=== PATIENT | male | born 1955 | race Caucasian/White ===

== ENCOUNTER 2016-12-09 09:00 | Inpatient (IN) | payer OTHER ==
[~2016-12-09] VITALS: Ht 182.9 cm; Wt 93.3 kg
--- NOTE | ~2016-12-09 | DS ---
PATIENT'S NAME: RAFAL STOUT [facility] AGE: 61 Y [address] ROOM: [place] [address] LOCATION: [facility] ADMIT DATE: 12/22/2016 Discharge Summary DISCHARGE DATE: 12/24/2016 FAMILY PHYSICIAN: Fabian Duval MD ATTENDING PHYSICIAN: Jana Lai PRIMARY DIAGNOSIS: Degenerative joint disease of the left knee. SECONDARY DIAGNOSES: 1. Hypertension. 2. Atrial fibrillation. 3. Hyperlipidemia. PROCEDURE PERFORMED: Left total knee arthroplasty with computer navigation. HISTORY: The patient is a 61-year-old male, who presents with advanced left knee degenerative joint disease and associated severely compromised activities of daily living. The patient has decided to proceed with total knee arthroplasty after having been thoroughly counseled regarding the risks, benefits, limitations and alternatives. Please refer to the outpatient clinic notes and admission history and physical for this patient. HOSPITAL COURSE: The patient underwent a left total knee arthroplasty on 12/22/2016 without complications. Spinal anesthesia plus adductor canal block plus periarticular local anesthesia was utilized. The patient received 24 hours of perioperative prophylactic antibiotics and remained hemodynamically stable, neurovascularly intact throughout the entire hospital course. The postoperative prophylactic deep venous thrombosis prophylaxis consisted of Xarelto 10 mg, early mobilization and pneumatic compression devices. Daily physical therapy for gait training, transfer training range of motion and quadriceps isometric exercises were received. The patient progressed well in physical therapy. On the date of discharge, 12/24/2016, the incision at the knee was healing well and showed no signs of infection. DISPOSITION: Home. DISCHARGE ACTIVITY: The patient is to bear weight as tolerated with range of motion and quadriceps isometric exercises as instructed. The operative extremity is to be elevated at least 90% of the day. There is to be sterile 4x4 gauze dressings to the incision daily. Dr. Lai is to be notified immediately if there is any increased pain, fevers, chills erythema or drainage. DISCHARGE MEDICATIONS: 1. Includes Xarelto 10 mg take one tab p.o. daily for DVT prevention. PATIENT'S NAME: RAFAL STOUT [facility] AGE: 61 Y [address] ROOM: [address] [address] LOCATION: [facility] ADMIT DATE: 12/22/2016 Discharge Summary DISCHARGE DATE: 12/24/2016 FAMILY PHYSICIAN: Fabian Duval MD ATTENDING PHYSICIAN: Jana Lai 2. Dilaudid 2 mg, take 1 to 2 tablets p.o. every 3 hours as needed for pain. FOLLOWUP: Followup appointment is to be with Dr. Lai on 12/29/2016 for initial postoperative evaluation with x-rays and for staple removal. FRED BENTLEY FOR JANA LAI MD TLB/modl /[id number] d: 01/13/17 0300 t: 01/13/17 1540, DISCHARGE SUMMARY
--- NOTE | ~2016-12-09 | OR ---
PATIENT'S NAME: SERAFIN STOUT [facility] AGE: 61 Y [address] ROOM: [place] [address] LOCATION: [facility] ADMIT DATE: 12/22/2016 OR/Procedure Report DISCHARGE DATE: FAMILY PHYSICIAN: Fabian Duval MD ATTENDING PHYSICIAN: JANA LAI SURGEON: Jana Lai MD CHAIR SPRING ASSEMBLER: 1. FRED Gates. 2. Orlin Ni CST/MOLECULAR BIOLOGY DIRECTOR. DATE OF PROCEDURE: 12/22/2016 PRE-OP DIAGNOSIS: Degenerative joint disease, left knee. POST-OP DIAGNOSIS: Degenerative joint disease, left knee. OPERATION: Left total knee arthroplasty with computer navigation. ANESTHESIA: Spinal anesthesia plus adductor canal block plus periarticular local anesthesia (ropivacaine with epinephrine and Toradol). ESTIMATED BLOOD LOSS: Less than 10 mL. DRAIN: None. SPECIMEN: None. COMPLICATIONS: None. IMPLANT SYSTEM: Narg[employer] Triathlon. 1. Size 6 left posterior-stabilized femoral component. 2. Size 6 [place] modular tibial baseplate. 3. An 11 mm posterior-stabilized size 6 X3 tibial polyethylene insert. 4. A 32 mm oval X3 patellar component (triple pegged). INDICATIONS FOR SURGERY: Serafin Stout is a 61-year-old male who presents with advanced left knee degenerative joint disease and associated severely compromised activities of daily living. The patient has decided to proceed with knee replacement after having been thoroughly counseled regarding the associated risks, benefits, and limitations. We have specifically reviewed the risks and implications of infection, deep venous thrombosis, pulmonary embolism, mortality, neurovascular complications, blood transfusion (and associated potential for disease transmission or transfusion reaction), stiffness, instability, mechanical deterioration of the components (due to wear and or loosening), and the potential need for revision. We have also emphasized the importance of active involvement and compliance with post- operative physical therapy as a means of optimizing range of motion and PATIENT'S NAME: SERAFIN STOUT [facility] AGE: 61 Y [address] ROOM: [place] [address] LOCATION: [facility] ADMIT DATE: 12/22/2016 OR/Procedure Report DISCHARGE DATE: FAMILY PHYSICIAN: Fabian Duval MD ATTENDING PHYSICIAN: JANA LAI functional recovery. Informed consent has been granted. DESCRIPTION OF PROCEDURE: The patient was positioned supine after administration of anesthesia and prophylactic antibiotics. A well-padded pneumatic tourniquet was placed around the left proximal thigh, and the left lower extremity was prepped and draped with vigilant sterile technique. The patient's name as well as the intended operative side and procedure were confirmed with a verbal time-out involving myself, the circulating nurse, the scrub nurse, and the anesthesiologist. Examination under anesthesia demonstrated a well-healed, long, curvilinear medial parapatellar arthrotomy scar. This was incorporated into our longitudinal midline incision. A full-thickness flap was raised from the incision to the medial retinaculum. No flap was raised in a medial direction. There were no active skin lesions or masses. There was a large effusion. There was no erythema. There was no abnormal warmth. Range of motion under anesthesia was from full extension to 130 degrees of flexion. There was no ligamentous insufficiency. The left lower extremity was elevated and exsanguinated with an Esmarch wrap, and the pneumatic tourniquet was inflated to 300mmHg. The knee was approached through a longitudinal midline incision. A medial parapatellar arthrotomy was performed and the patella was everted. Examination of the joint space demonstrated a large amount of benign-appearing orange tinted translucent synovial fluid. The cruciate ligaments were intact. There was extensive moderately proliferative synovitis. An extensive synovectomy was performed. Cruciate ligaments were intact. There was a moderate-sized intercondylar notch osteophyte. There were several nonresorbable sutures in the medial retinaculum. These were removed. There was full-thickness loss of articular cartilage involving 90% of the medial femoral condyle and 90% of the medial tibial plateau. There was a large osteophyte at the medial femoral condyle. There was a moderate-sized osteophyte at the medial margin of the patella. There was a large osteophyte at the anterior aspect of the lateral tibial plateau. There was a 1 cm diameter region of full-thickness articular cartilage loss with an associated full-thickness delaminating articular cartilage flap at the medial aspect of the lateral tibial plateau. There was a 1 x 2 cm region of full-thickness articular cartilage loss at the medial aspect of the medial facet of the patella. There was high-grade partial thickness articular cartilage loss throughout the remainder of the medial facet of the patella. There was a small osteophyte at the lateral margin of the femoral trochlea. There were grade 2 degenerative changes at the femoral trochlea. There was mild inner perimeter degenerative tearing and extensive chondrocalcinosis at the lateral meniscus. There was complex degenerative tearing of the small peripheral macerated remnant of the medial meniscus. PATIENT'S NAME: SERAFIN STOUT [facility] AGE: 61 Y [address] ROOM: [address] [address] LOCATION: [facility] ADMIT DATE: 12/22/2016 OR/Procedure Report DISCHARGE DATE: FAMILY PHYSICIAN: Fabian Duval MD ATTENDING PHYSICIAN: JANA LAI Remnants of the menisci and cruciate ligaments were excised. The [employer] computer navigation femoral tracker was pinned in place at the distal aspect of the femoral trochlea. Absence of motion between the femur and the tracking device was confirmed manually and visually. Femoral osseous landmarks were obtained in order to calibrate the computer navigation system. Landmarks included the center of rotation of the ipsilateral hip, the center-point of the distal femur, the femoral AP axis, 57 points on the medial femoral condyle articular surface, and 57 points on the lateral femoral condyle articular surface. The [employer] computer navigation system was subsequently utilized to position the distal femoral resection block such that the distal femoral resection was performed perfectly perpendicular to the femoral mechanical axis. The distal femoral resection was performed with a [employer] oscillating saw. The [employer] computer navigation tibial tracker was pinned in place at the anterior aspect of the tibial plateau. Absence of motion between the tibia and the tracking device was confirmed manually and visually. Tibial osseous landmarks were obtained in order to calibrate the computer navigation system. Landmarks included the center-point of the tibial plateau, the AP tibial axis, 57 points on the medial tibial plateau articular surface, 57 points on the lateral tibial plateau articular surface, the medial malleolus, and the lateral malleolus. The [employer] computer navigation system was subsequently utilized to position the proximal tibial resection block such that the proximal tibial resection was performed perfectly perpendicular to the tibial mechanical axis. The proximal tibial resection was performed with a [employer] oscillating saw. Perpendicularity of the tibial resection with respect to the tibial shaft axis was reconfirmed by inserting a spacer- block attached to an extramedullary guide santi. External rotation of the anterior and posterior femoral resections was set parallel to the epicondylar axis and carefully adjusted in order to create a rectangular flexion gap. The box resection was performed with a reciprocating saw. Anterior and posterior chamfer resections were performed with the oscillating saw. Posterior condyle osteophytes were excised with an osteotome. All other osteophytes were excised with a rongeur. Resection of all remnants of the menisci was reconfirmed. Flexion and extension gaps were confirmed to be symmetric and well balanced with a spacer-block technique. The patella resection was performed with an oscillating saw such that the composite thickness of the reconstructed patella was equivalent to the thickness of the samish patella. Patella tracking was confirmed to be optimal. Patella tracking was optimal, and there was no need for a lateral retinacular release. PATIENT'S NAME: SERAFIN STOUT [facility] AGE: 61 Y [address] ROOM: [place] [address] LOCATION: [facility] ADMIT DATE: 12/22/2016 OR/Procedure Report DISCHARGE DATE: FAMILY PHYSICIAN: Fabian Duval MD ATTENDING PHYSICIAN: JANA LAI All trial components were removed and all prepared osseous surfaces were thoroughly irrigated with pulsatile saline lavage and dried prior to cementing all three components in a single stage using Nargis Simplex cement containing pre-mixed tobramycin. All extruded excess cement was removed. The entire joint space was thoroughly inspected and thoroughly irrigated with bacteriostatic pulsatile saline lavage to assure that there was no residual debris of any sort. Final range of motion was from a full extension (with no passive hyperextension) to 130 degrees of flexion. Patella tracking was reconfirmed to be optimal. There was excellent anteroposterior stability at 90 degrees of flexion. There was less than 1 mm of medial lift-off to valgus stress in full extension. There was less than 1 mm of lateral lift-off to varus stress in full extension. The arthrotomy was closed with multiple simple and tipxzv-[id number] interrupted #1 Vicryl. Subcutaneous tissues were thoroughly re-irrigated with bacteriostatic pulsatile saline lavage. Subcutaneous tissues were re- approximated with simple buried interrupted #0 Vicryl sutures. The skin was closed with simple buried interrupted 2-0 Vicryl sutures followed by surgical richard. The dressing consisted of Xeroform gauze, 4x4 gauze, ABD pads and two 6-inch Sb Wraps. There were no intra-operative complications. It should be noted that the physician's railway yard assistant played an active, integral role throughout this entire operation. By providing expert retraction, they greatly facilitated and expedited safe and effective exposure of the distal femur, proximal tibia and patella for preparation and implantation of the components. They were also actively involved in the patient's positioning, prepping and draping, as well as wound closure. MD MALICK CARTER/manju /[id number] d: 12/22/165 t: 12/23/16 1033, OPERATIVE SUMMARY
[2016-12-10] MEDS ORDERED: PRINIVIL OR ZES10 MG PO (14:33)
[2016-12-10] MEDS ORDERED: LIPITOR20 MG PO (14:34)
[2016-12-10] MEDS ORDERED: ASPIRIN EC81 MG PO (14:34)
[2016-12-10] MEDS ORDERED: COREG6.25 MG PO (14:34)
--- NOTE | 2016-12-22 16:29 | NUR ---
Introduced self/role to patient and family. Patient attended the preop joint class. Reports he lives in [place] with Martha. Has home with walk in shower. Does not have walker. Provided with listing of area DME options. Will follow up for recommended equipment needs. Reviewed and encouraged use of IS. Encouraged dorsal/plantar flexing when spinal worn off. Will follow and assist with identified needs.
--- NOTE | 2016-12-22 17:42 | NUR ---
Significant Event: Pt arrived from PACU 1545, spinal almost off, tingling to toes yet, no void, VSS-last half hour at 1830, adequate oral intake, Pain well controlled with Dilaudid, Scheduled Tylenol Follow up: Pain control, spinal to wear off
--- NOTE | 2016-12-23 04:12 | NUR ---
Patient alert and oriented x3, very pleasant and cooperative, csm with in normal limits, dressing clean dry and intact, ice in place to knee, transfers well one assist with walker and gaitbelt, ambulated in room, does not like to take pain pills but he did take one around 2300, has rested well VSS
--- NOTE | 2016-12-23 18:06 | NUR ---
Significant Event: Patient alert and oriented x3, continent of bowel and bladder, pain rated at 2/10. Pain managed with dilaudid 2mg @ 1340 and tylenol 1000mg @ 1659. Patient does not wish to use many pain meds or unneccessary meds. Patient denied stool softeners this morning. 1PA with gaitbelt and walker. CSMs appropriate. Follow up: Monitor for pain.
--- NOTE | 2016-12-23 19:23 | NUR ---
PATIENT DOING WELL. WILL DISMISS TOMORROW. DILAUDID ONE TAB AT 1330. TYLENOL AT 1700. CSM ADEQUATE.
--- NOTE | 2016-12-24 03:56 | NUR ---
Significant Event: A/O X 3. SAT UP IN RECLINER CHAIR. AMBULATED TO BR ONE ASSIST, GAITBELT AND WALKER TO BR. GOOD TOLERANCE. VOIDS WITHOUT PROBLEMS. TAKES FLUIDS, NO NAUSEA. IV SALINE LOCK INTACT. SHEN HOSE OFF AT HS. DRSGS DRY-INTACT LEFT KNEE. DENIES NUMBNESS OR TINGLING. ICE BAG TO LEFT KNEE. ON ROUTINE SCHEDULED TYLENOL X ST 1000MG 2300/0500. PATIENT REFUSED COLACE AND MIRALAX AT HS. POSSIBLE TO GO HOME TODAY. INCENTIVE SPIROMETER USAGE [phone]. BILATERAL FOOT PUMPS TO FEET. Follow up:
--- NOTE | 2016-12-24 10:00 | NUR ---
Followed up with patient re need for walker. Reports she was able to get one from [facility]. Denies other needs or concerns for dismissal.
[2016-12-24] MEDS ORDERED: TYLENOL EXTRA500 MG PO (12:03)
[2016-12-24] MEDS ORDERED: COLACE100 MG PO (12:04)
[2016-12-24] MEDS ORDERED: NEURONTIN300 MG PO (12:05)
[2016-12-24] MEDS ORDERED: MIRALAX17 GM PO (12:06)
[2016-12-24] MEDS ORDERED: CELEBREX200 MG PO (12:07)
[2016-12-24] MEDS ORDERED: DILAUDID 2MG(HYD2 MG PO (12:08)
[2016-12-24] MEDS ORDERED: XARELTO10 MG PO (12:13)
--- NOTE | 2016-12-24 16:07 | NUR ---
Significant Event: Patient alert and oriented x3, voiding well, passing gas, and pain controlled with Tylenol. Pt provided with discharge teaching regarding prescriptions, DVT prevention, mobility, and S/S of infection. Pt wheeled to parking lot to vehicle with and belongings.
--- NOTE | 2016-12-24 16:35 | NUR ---
I was preceptor for student nurse Dominick Fernández this shift and agree with his charting for the shift.
--- NOTE | 2016-12-24 16:36 | NUR ---
Pt discharged to go home today. He ambulates with walker, standby assist. Pt has had tylenol and dilaudid for pain and reports pain well controlled. Last dilaudid was 0530 today and says tylenol is sufficient. Wound intact with richard. Dressing changed today. No redness, swelling and edges approximated. Pt has good intake and output. CSM WNL. Knows to elevate legs and use ice at home.
== END 2016-12-24 14:55 | disposition disaster alternative care site (69) | DRG 470 ==
LOC: G3N 12-22 09:42
PROVIDERS: ADMIT Orthopaedic Surgery
PROC: 0SRD0J9 Replacement of Left Knee Joint with Synthetic Substitute, Cemented, Open Approach (ICD-10-PCS; principal; 2016-12-22)
DX: M17.12 Unilateral primary osteoarthritis, left knee (principal); I10 Essential (primary) hypertension; E78.5 Hyperlipidemia, unspecified; E66.3 Overweight; Z68.27 Body mass index [BMI] 27.0-27.9, adult
CPT/HCPCS: C1713; C1776; J0690; J1100; J1885; J2001; J2250; J2405; J2795; J7120

== ENCOUNTER → 2016-12-11 | Outpatient (CLI) | payer OTHER ==
[~2016-12-11] MED LIST: ASPIRIN EC81 MG PO; CELEBREX200 MG PO; COLACE100 MG PO; COREG6.25 MG PO; DILAUDID 2MG(HYD2 MG PO; LIPITOR20 MG PO; MIRALAX17 GM PO; NEURONTIN300 MG PO; PRINIVIL OR ZES10 MG PO; TYLENOL EXTRA500 MG PO; XARELTO10 MG PO
== END | disposition disaster alternative care site (69) ==
LOC: GNJRC 10:35
DX: Z01.812 Encounter for preprocedural laboratory examination (principal); M17.12 Unilateral primary osteoarthritis, left knee